=== PATIENT | female | born 1990 | race Hispanic/Latino ===

== ENCOUNTER 2024-09-13 07:02 | Emergency (ER) | payer OTHER, SELFPAY ==
[2024-09-13] MEDS ORDERED: Ketorolac Tromethamine 30 MG (1 mL) VIAL ONE (08:19)
[2024-09-13] MEDS ORDERED: Ondansetron PF 4 MG/2 ML Vial ONE (08:19)
[2024-09-13] MEDS ORDERED: diphenhydrAMINE 50 MG/ML VIAL ONE (08:19)
[2024-09-13 08:38] LABS: #Basophils 0.05 10x3/uL (0.0-0.2); #Eosinophils Less than 0.03 10x3/uL (0.0-0.7); %Basophils 0.3 % (0.0-1.0); %Eosinophils 0.1 % (0.0-10.0); %Lymphocytes 10.6 % (21.0-51.0); %Neutrophils 86.7 % (42.0-75.0); Hematocrit 41.7 % (36.0-47.0); Mean Corpuscular HGB CONC 33.6 g/dL (32.0-36.0); Mean Corpuscular Hemoglobin 29.1 pg (27.0-31.0); Mean Corpuscular Volume 86.7 fL (78.0-98.0); Mean Platelet Volume 9.5 fL (7.4-10.4); Platelet Count 491 10x3/uL (130-400); RBC Distribution Width 13.6 % (11.5-14.5); Red Blood Cell (RBC) Count 4.81 mill/uL (4.20-5.40)
[2024-09-13 08:54] LABS: ALT (SGPT) 14 U/L (8-55); AST (SGOT) 16 U/L (5-34); Albumin 4.2 g/dL (3.5-5.0); Alkaline Phosphatase 87 U/L (40-110); Anion Gap 21 mmol/L (10-20); BUN (Urea Nitrogen) 11 mg/dL (7.0-18.7); Bilirubin, Total 0.7 mg/dL (0.2-1.2); Calc. Creatinine Clearance 0 mL/min (70-130); Calcium 9.3 mg/dL (7.8-10.44); Carbon Dioxide 17 mmol/L (22-29); Chloride 103 mmol/L (98-107); Estimated GFR 118; Globulin 4.3 g/dL (2.4-3.5); Glucose 79 mg/dL (70-105); Magnesium 1.9 mg/dL (1.6-2.6); Potassium 3.8 mmol/L (3.5-5.1); Protein, Total 8.5 g/dL (6.0-8.3); Sodium 137 mmol/L (136-145)
[2024-09-13 09:05] LABS: BHCG - Serum Negative (NEGATIVE); Pregs Control Background? CLEAR/WHITE (CLR/WHITE); Pregs Control Bar Appear? YES (CONTROL BAR)
== END 2024-09-13 09:32 | disposition home or self-care (01) ==
LOC: ERS 07:02
DX: H53.8 Other visual disturbances (principal)
CPT/HCPCS: 36415; 70450; 80053; 83735; 84703; 85025; 93005; 96374; 96375; J1200; J1885; J2405

== ENCOUNTER 2025-07-03 15:00 | Emergency (ER) | payer SELFPAY ==
[2025-07-03 15:45] LABS: #Basophils 0.08 10x3/uL (0.0-0.2); #Eosinophils Less than 0.03 10x3/uL (0.0-0.7); #Monocytes 0.27 10x3/uL (0.11-0.59); #Neutrophils 22.26 10x3/uL (1.40-6.50); %Basophils 0.3 % (0.0-1.0); %Eosinophils 0.0 % (0.0-10.0); %Lymphocytes 5.1 % (21.0-51.0); %Monocytes 1.1 % (0.0-10.0); %Neutrophils 92.9 % (42.0-75.0); Hematocrit 39.8 % (36.0-47.0); Hemoglobin 13.1 g/dL (12.0-16.0); Mean Corpuscular Hemoglobin 28.4 pg (27.0-31.0); Mean Corpuscular Volume 86.1 fL (78.0-98.0); Platelet Count 444 10x3/uL (130-400); Red Blood Cell (RBC) Count 4.62 mill/uL (4.20-5.40); White Blood Cell (WBC) Count 23.96 10x3/uL (4.8-10.8)
[2025-07-03] MEDS ORDERED: Ondansetron PF 4 MG/2 ML Vial ONE (15:54)
[2025-07-03] MEDS ORDERED: Ketorolac Tromethamine 30 MG (1 mL) VIAL ONE (15:54)
[2025-07-03] MEDS ORDERED: Famotidine/PF 20 mg/2ml Vial ONE (15:54)
[2025-07-03 16:11] LABS: Magnesium 1.7 mg/dL (1.6-2.6)
[2025-07-03 16:12] LABS: ALT (SGPT) 15 U/L (Less than 34); AST (SGOT) 40 U/L (11-34); Albumin 4.1 g/dL (3.1-4.5); Alkaline Phosphatase 92 U/L (40-110); Anion Gap 18 mmol/L (10-20); BUN (Urea Nitrogen) 9 mg/dL (7.0-18.7); Bilirubin, Total 0.3 mg/dL (0.3-1.2); Calc. Creatinine Clearance 0 mL/min (70-130); Calcium 9.2 mg/dL (7.8-10.44); Carbon Dioxide 20 mmol/L (22-29); Chloride 106 mmol/L (98-107); Globulin 4.3 g/dL (2.4-3.5); Glucose 130 mg/dL (70-105); Potassium 3.4 mmol/L (3.5-5.1); Sodium 141 mmol/L (136-145)
[2025-07-03 16:18] LABS: BHCG - Serum Negative (NEGATIVE); Pregs Control Background? CLEAR/WHITE (CLR/WHITE); Pregs Control Bar Appear? YES (CONTROL BAR)
[2025-07-03 18:42] LABS: CAUTI Indications for Culture Pelvic or flank pain; Glucose, Urine (Dipstick) Normal (Negative); Leukocyte Negative Leu/uL (Negative); Protein, Urine (Dipstick) 70 mg/dL (Neg-Trace); Specific Gravity, Urine 1.018 (1.002-1.036)
[2025-07-03 18:46] LABS: Bacteria/HPF 1+ HPF (None Seen)
[2025-07-03 18:47] LABS: Urine Culture Reflex No No
== END 2025-07-03 19:04 | disposition home or self-care (01) ==
LOC: ERS 15:00
DX: N39.0 Urinary tract infection, site not specified (principal)
CPT/HCPCS: 80053; 81001; 83735; 84484; 84703; 85025; 93005; 96361; 96374; 96375; J1885; J2405